=== PATIENT | female | born 1940 | race Caucasian/White ===

== ENCOUNTER 2019-07-26 17:11 | Inpatient (IN) | payer MEDICARE ==
[~2019-07-26] VITALS: Ht 154.9 cm; Wt 70.8 kg
[2019-07-26 17:53] LABS: BASOPHILS ABSOLUTE AUTO 0.05 K/mm3 (0.00-0.23); BASOPHILS PERCENT AUTO 1 % (0-2); EOSINOPHILS ABSOLUTE AUTO 0.12 K/mm3 (0.00-0.68); EOSINOPHILS PERCENT AUTO 1 % (0-6); Hematocrit 37.3 % (33.0-51.0); Hemoglobin 11.8 g/dL (11.5-16.0); IMMATURE GRAN ABSOLUTE AUTO 0.04 K/mm3 (0.00-0.10); IMMATURE GRAN PERCENT AUTO 1 % (0-1); LYMPHOCYTES ABSOLUTE AUTO 1.66 K/mm3 (0.84-5.20); LYMPHOCYTES PERCENT AUTO 20 % (21-46); MONOCYTES ABSOLUTE AUTO 0.74 K/mm3 (0.16-1.47); MONOCYTES PERCENT AUTO 9 % (4-13); Mean Corpuscular HGB 27.4 pg (26.0-34.0); Mean Corpuscular HGB Conc 31.6 g/dL (31.5-36.5); Mean Corpuscular Volume 87 fL (80-100); Mean Platelet Volume 10.7 fL (9.1-12.4); NEUTROPHILS PERCENT AUTO 69 % (41-73); Platelet Count 231 K/mm3 (150-400); RDW Coefficient Variation 15.1 % (11.7-14.2); RDW Standard Deviation 47.8 fL (35.1-46.3); White Blood Cell Count 8.31 K/mm3 (4.00-11.30)
[2019-07-26 18:07] LABS: Alanine Aminotransfer (ALT/SGP 31 U/L (12-78); Albumin, Blood 3.4 g/dL (3.4-5.0); Albumin/Globulin Ratio 0.8 (0.8-1.8); Alk Phos 95 U/L (50-136); Anion Gap 5 mmol/L (6-16); Aspartate Aminotrans (AST/SGOT 17 U/L (12-37); Bilirubin, Total 0.4 mg/dL (0.1-1.0); Blood Urea Nitrogen 25 mg/dL (8-24); Bun/Creatinine Ratio 36.1 (12.0-20.0); CO2, Blood 27 mmol/L (21-32); Calcium, Blood 9.8 mg/dL (8.5-10.1); Chloride, Blood 102 mmol/L (98-108); Creatinine, Blood 0.69 mg/dL (0.40-1.00); Globulin, Blood 4.1 g/dL (2.2-4.0); Glomerular Filtration Rate >60 (60-); Glucose, Blood 266 mg/dL (70-99); Potassium, Blood 4.7 mmol/L (3.5-5.5); Sodium, Blood 134 mmol/L (136-145); Total Protein, Blood 7.5 g/dL (6.4-8.2); Troponin I 0.021 ng/mL (0.000-0.040)
[2019-07-26] MEDS ORDERED: LISI20 PO (19:17)
[2019-07-26] MEDS ORDERED: METF500 PO (19:18)
[2019-07-26] MEDS ORDERED: MONT10T PO (19:18)
[2019-07-26] MEDS ORDERED: Fish Oil Conc1000 MG PO (19:18)
[2019-07-26] MEDS ORDERED: ZOCOR20 MG PO (19:19)
[2019-07-26] MEDS ORDERED: SOLI5 PO (19:19)
[2019-07-26] MEDS ORDERED: ALBU90OI INH (19:20)
[2019-07-26] MEDS ORDERED: Vitamin D2000 UNIT PO (19:20)
[2019-07-26] MEDS ORDERED: BD ULTRA-FINE1 EAC1 MC (19:21)
[2019-07-26] MEDS ORDERED: CARV6.25 PO (19:21)
[2019-07-26] MEDS ORDERED: Cinnamon500 MG (19:22)
[2019-07-26] MEDS ORDERED: DICL75ER PO (19:22)
[2019-07-26] MEDS ORDERED: DULO60 PO (19:22)
[2019-07-26] MEDS ORDERED: INSDET100 SC (19:23)
[2019-07-26] MEDS ORDERED: GLIM4 PO (19:23)
[2019-07-26] MEDS ORDERED: Aspirin EC81 MG PO (21:05)
[2019-07-26] MEDS ORDERED: MIRALAX17 G1 PO (21:05)
[2019-07-26] MEDS ORDERED: ACET500 PO (21:06)
[2019-07-26 21:59] LABS: Adenovirus Not Detected (NOT DETECT); Bordetella pertussis Not Detected (NOT DETECT); Chlamydophila pneumoniae Not Detected (NOT DETECT); Coronavirus 229E Not Detected (NOT DETECT); Coronavirus HKU1 Not Detected (NOT DETECT); Coronavirus NL63 Not Detected (NOT DETECT); Coronavirus OC43 Not Detected (NOT DETECT); Human Metapneumovirus Detected (NOT DETECT); Human Rhinovirus/Enterovirus Not Detected (NOT DETECT); Influenza A/2009-H1 Not Detected (NOT DETECT); Influenza A/H1 Not Detected (NOT DETECT); Influenza A/H3 Not Detected (NOT DETECT); Influenza B Not Detected (NOT DETECT); Mycoplasma pneumoniae Not Detected (NOT DETECT); Parainfluenza Virus 1 Not Detected (NOT DETECT); Parainfluenza Virus 2 Not Detected (NOT DETECT); Parainfluenza Virus 3 Not Detected (NOT DETECT); Parainfluenza Virus 4 Not Detected (NOT DETECT); Respiratory Syncytial Virus Not Detected (NOT DETECT)
--- NOTE | 2019-07-27 02:46 | NUR ---
RECIEVIED FROM ER TO REVERSE FLOW ROON, TRANSFER FROM BED TO [facility] WITH MIN ASSIST. DROPLET AND AIRBORNE PRECATIONS INITIATED. SEE [facility] FOR FULL ADMISSION ASSESSMENT.
[2019-07-27 04:33] LABS: Hematocrit 34.6 % (33.0-51.0); Mean Corpuscular HGB 27.6 pg (26.0-34.0); Mean Corpuscular HGB Conc 31.8 g/dL (31.5-36.5); Mean Corpuscular Volume 87 fL (80-100); Mean Platelet Volume 10.8 fL (9.1-12.4); Platelet Count 196 K/mm3 (150-400); RDW Coefficient Variation 15.4 % (11.7-14.2); RDW Standard Deviation 48.9 fL (35.1-46.3); Red Blood Cell Count 3.99 M/mm3 (3.80-5.20); White Blood Cell Count 6.81 K/mm3 (4.00-11.30)
[2019-07-27 04:51] LABS: Albumin, Blood 3.3 g/dL (3.4-5.0); Albumin/Globulin Ratio 0.8 (0.8-1.8); Bilirubin, Total 0.5 mg/dL (0.1-1.0); Bun/Creatinine Ratio 33.8 (12.0-20.0); Calcium, Blood 9.4 mg/dL (8.5-10.1); Creatinine, Blood 0.98 mg/dL (0.40-1.00); Globulin, Blood 4.1 g/dL (2.2-4.0); Potassium, Blood 5.1 mmol/L (3.5-5.5); Total Protein, Blood 7.4 g/dL (6.4-8.2)
[2019-07-27 08:37] LABS: Test Name COVID-19
--- NOTE | 2019-07-27 12:05 | NUR ---
TALKED TO DR. GOLDBERG REGARDING PT'S HIGH BLOOD SUGAR OF 499 ADVISED TO ADMINISTER INSULIN PER SLIDING SCALE, PROVIDER TO ADJUST INSULIN DOSE. PT ASYMPTOMATIC, CURRENTLY IN BED WITH CALL LIGHTS IN REACH.
--- NOTE | 2019-07-27 18:34 | NUR ---
PT ALERT AND ORIENTED, PT STAYED IN THE ROOM MOST OF THE SHIFT, COOPERATIVE WITH CARES AND COMPLAINT WITH MEDICATION. HRR NSR ON 90'S DENIES CHEST PAIN, LUNGS WITH EXPIRATORY WHEEZES SATS ABOVE 90% ON 2L OF O2, PT HAS BEEN AMBULATING WITH ASSISTS FOR TOILETING. AWAITING FOR PENDING RESULT FOR JJ VIRUS, PT STILL ON AIRBRONE PRECAUTIONS. CBG'S HAS BEEN HIGH FOR THE SHIFT [phone] DR GOLDBERG MADE AWARE ADVISED TO GIVE HUMALOG INSULIN PER SLIDING SCALE, NO ADJUSTMENTS MADE YET, REG DIET SWITCHED TO ADA DIET. PT CURRENTLY IN BED RESTING CALL LIGHTS WITHIN REACH WILL MONITOR.
--- NOTE | 2019-07-28 05:35 | NUR ---
END OF SHIFT SUMMARY NO ACUTE CHANGES THIS SHIFT. VSS. STIL AWAITING CORONVIRUS RESULTS. STILL IN AIRBORNE PRECAUTIONS. LUNGS REMAIN WHEEZY THOUGHOUT. PT REMIANS ON 3LNC. HAS BEEN UOP TO BATHROOM MULTIOPLE TIMES THIS SHIFT, MAINTAINS SATS >92%. FAMILY HAS BEEN AT BEDASIDE AT THE BEGINNING OF THE SHIFT. PT HAS SLEPTY FOR THE MAJORITY OF THE NIGHT5, HAS TOLERATED CPAP OF AND ON. PT VERY PLEASANT. AFEBRILE. WILL CONTINU TO MONITOR UNTIL SHIFT CHANGE.
[2019-07-28 06:06] LABS: BASOPHILS ABSOLUTE AUTO 0.02 K/mm3 (0.00-0.23); BASOPHILS PERCENT AUTO 0 % (0-2); EOSINOPHILS PERCENT AUTO 0 % (0-6); Hematocrit 32.4 % (33.0-51.0); Hemoglobin 10.4 g/dL (11.5-16.0); IMMATURE GRAN ABSOLUTE AUTO 0.07 K/mm3 (0.00-0.10); IMMATURE GRAN PERCENT AUTO 1 % (0-1); LYMPHOCYTES PERCENT AUTO 9 % (21-46); MONOCYTES ABSOLUTE AUTO 0.65 K/mm3 (0.16-1.47); MONOCYTES PERCENT AUTO 4 % (4-13); Mean Corpuscular HGB 27.7 pg (26.0-34.0); Mean Corpuscular HGB Conc 32.1 g/dL (31.5-36.5); Mean Corpuscular Volume 86 fL (80-100); Mean Platelet Volume 11.1 fL (9.1-12.4); NEUTROPHILS ABSOLUTE AUTO 12.69 K/mm3 (1.96-9.15); NEUTROPHILS PERCENT AUTO 86 % (41-73); Platelet Count 209 K/mm3 (150-400); RDW Coefficient Variation 15.2 % (11.7-14.2); RDW Standard Deviation 47.6 fL (35.1-46.3); Red Blood Cell Count 3.75 M/mm3 (3.80-5.20); White Blood Cell Count 14.73 K/mm3 (4.00-11.30)
[2019-07-28 06:17] LABS: Alanine Aminotransfer (ALT/SGP 26 U/L (12-78); Albumin, Blood 3.2 g/dL (3.4-5.0); Albumin/Globulin Ratio 0.8 (0.8-1.8); Alk Phos 79 U/L (50-136); Anion Gap 5 mmol/L (6-16); Aspartate Aminotrans (AST/SGOT 15 U/L (12-37); Bilirubin, Total 0.3 mg/dL (0.1-1.0); Blood Urea Nitrogen 36 mg/dL (8-24); Bun/Creatinine Ratio 41.8 (12.0-20.0); CO2, Blood 29 mmol/L (21-32); Calcium, Blood 9.4 mg/dL (8.5-10.1); Chloride, Blood 103 mmol/L (98-108); Creatinine, Blood 0.86 mg/dL (0.40-1.00); Globulin, Blood 3.8 g/dL (2.2-4.0); Glomerular Filtration Rate >60 (60-); Glucose, Blood 367 mg/dL (70-99); Magnesium, Blood 2.1 mg/dL (1.6-2.4); Potassium, Blood 5.3 mmol/L (3.5-5.5); Sodium, Blood 137 mmol/L (136-145)
--- NOTE | 2019-07-28 15:47 | NUR ---
SHIFT NOTE PT REPORTS THAT SHE IS "FEELING MUCH BETTER TODAY" STS GREAT IMPROVEMENT OF BREATHING. PT DOES BECOME WHEEZY WITH EXERTION, BUT DOES NOT DESATURATE. PT WITH FINE EXPIRATORY WHEEZES NOTED TO RUL, BUT OTHERWISE DIMENISHED T/O. VSS. PT HAS NEEDED INSULIN COVERAGE T/O THE DAY, DR GOLDBERG WAS NOTIFIED ON ONE CHEMBG THAT WAS 406. PT WILL REMAIN PCU STATUS TODAY, WITH LIKELY TRANSFER TO MEDCIAL FLOOR TOMORROW PER DR GOLDBERG
[2019-07-29 04:10] LABS: Hematocrit 32.7 % (33.0-51.0); Hemoglobin 10.3 g/dL (11.5-16.0); Mean Corpuscular HGB 27.4 pg (26.0-34.0); Mean Corpuscular HGB Conc 31.5 g/dL (31.5-36.5); Mean Corpuscular Volume 87 fL (80-100); Mean Platelet Volume 10.5 fL (9.1-12.4); Platelet Count 210 K/mm3 (150-400); RDW Coefficient Variation 15.1 % (11.7-14.2); Red Blood Cell Count 3.76 M/mm3 (3.80-5.20); White Blood Cell Count 15.05 K/mm3 (4.00-11.30)
--- NOTE | 2019-07-29 04:17 | NUR ---
SHIFT SUMMARY HAS RESTED WELL THIS SHIFT. LYING IN SEMI FOWLERS WITH EYES CLOSED. RESPIRATIONS EVEN AND UNLABOREDON O2 AT 3L/NC. HAS EXP WHEEZES AUDIBLE WITHOUT STEPHESCOPE AND TACHYPNEA NOTED WITH EXERTION. ABLE TO CLEAR WITH COUGH. DENIES PAIN, DISCOMFORT, OR FURTHER NEEDS AT THIS TIME. SAFETY MEASURES IN PLACE. WILL GIVE HAND OFF TO ONCOMING SHIFT USING SBAR.
[2019-07-29 04:29] LABS: Anion Gap 6 mmol/L (6-16); Blood Urea Nitrogen 37 mg/dL (8-24); Bun/Creatinine Ratio 43.7 (12.0-20.0); CO2, Blood 29 mmol/L (21-32); Calcium, Blood 9.3 mg/dL (8.5-10.1); Chloride, Blood 102 mmol/L (98-108); Creatinine, Blood 0.85 mg/dL (0.40-1.00); Glomerular Filtration Rate >60 (60-); Glucose, Blood 309 mg/dL (70-99); Potassium, Blood 5.3 mmol/L (3.5-5.5); Sodium, Blood 137 mmol/L (136-145)
[2019-07-29 04:42] LABS: Percent Saturation 11.7 % (15.0-50.0)
--- NOTE | 2019-07-29 16:07 | NUR ---
PCU DAYSHIFT SUMMARY PATIENT REMAINS ALERT AND ORIENTED X4 T/O SHIFT. PATIENT DENIES ANY PAIN OR SOB AT REST. PATIENT REMAINS ON 2.5 LPM NC T/O SHIFT WITH CONTINUOUS BIOX IN PLACE - SPO2 >92%. PATIENT NOW MED NO TELE STATUS. NO ACUTE CHANGES OR EVENTS NOTED T/O SHIFT. MD GOLDBERG CHANGES PATIENTS INSULIN MEDICATIONS TO HELP HER HYPERGLYCEMIA. PATIENT HAS CALL LIGHT W/I REACH. AMBULATES WITH STEADY GAIT TO BATHROOM AND CANE FROM HOME. WILL CONTINUE TO MONITOR AND GIVE REPORT TO NOC SHIFT RN.
--- NOTE | 2019-07-30 05:14 | NUR ---
SUMMARY NO ACUTE CHANGES OTED THROUGH THE NIGHT, PT REMAINS A&O X4, INDEPENDENT IN THE ROOM, SHE IS CURRENTLY ON 2 L O2 VIA NC, O2 SATS >94%, VSS. PT'S DAUGHTERS HAVE BEEN IN TO VISIT EARLIER IN THE EVENING. THE PT IS BEING TRANSFERED TO ROOM 358 ON MEDICAL FLOOR. REPORT HAS BEEN CALLED. PT IS AWAKE, BELONGINGS SENT.
--- NOTE | 2019-07-30 05:52 | NUR ---
PCU 08 TRANSFER. REPORT TAKEN FROM TRI MARTINEZ. ARRIVED VIA GURNEY AND BED EXCHANGE. AXOX 4 AND SBA TO BR. ON 2L O2 NC. DENIES PAIN, SOB, AND N/V. DROPLET PRECAUTIONS. CALL LIGHT IN REACH. BED IN LOWEST POSITION. WILL CONTINUE TO MONITOR UNTIL DAY SHIFT NURSE ASSUMES CARE.
--- NOTE | 2019-07-30 08:07 | NUR ---
BLOOD GLUCOSE [address] CARPENTER NOTIFIED. WILL GIVE SLIDING SCALE HUMALOG AND MONITOR.
--- NOTE | 2019-07-30 13:10 | NUR ---
PT BLOOD GLUCOSE WAS 453 @1155. DR CARPENTER NOTIFIED INSULIN ADJUSTED.
--- NOTE | 2019-07-30 17:30 | NUR ---
SHIFT SUMMARY- PT IS A/O, PLESANT AND COOPERATIVE. SHE IS WORKING WITH RT. WORKING ON TITRATING HER OFF OXYGEN. SHE WAS ABLT TO MAINTAIN SATURATION AT 1L O2 BUT HER SATURATIONS BEGAN TO DROP WHEN IT WAS REMOVED. WILL CONTINUE TO MONTIOR, POSSIBLE HOME O2 EVALUATION IF SHE IS UNABLE TO BE TITRATED OFF O2. SHE IS EATING AND DRINKING WELL. SHE STATES THAT SHE IS FEELING BETTER.
--- NOTE | 2019-07-30 23:46 | NUR ---
CALL TO ANSWERING SERVICE RE: CBG [phone]. SPOKE W/BREANNA BRAVO NP AT [phone]. PT HAS BEEN ADMINISTERED HS [facility] PER ORDER. CONT ON PREDNISONE. NO NEW ORDERS AT THIS TIME.
--- NOTE | 2019-07-31 06:28 | NUR ---
SHIFT SUMMARY: A/0X3. MAKES NEEDS KNOWN. 02 SATS 92-95% ON 1L VIA NC. EXERTIONAL SOB. OCC DRY COUGH. AUDIBLE EXP WHEEZE BEFORE RT TX. UP INDEPENDENTLY IN ROOM. NO ACUTE CHANGES OVERNIGHT. WILL CONT TO MONITOR.
[2019-07-31] MEDS ORDERED: ACET325 PO (12:34)
[2019-07-31] MEDS ORDERED: BASAGLAR K100 UNIT/1 SC (12:37)
[2019-07-31] MEDS ORDERED: Humalog100 UNIT/1 SC (12:39)
[2019-07-31] MEDS ORDERED: ROBITUSSIN COU237 M1 PO (12:46)
[2019-07-31] MEDS ORDERED: AZIT500 PO (13:27)
[2019-07-31] MEDS ORDERED: TROSPIUM CHLORI20 MG PO (13:27)
[2019-07-31] MEDS ORDERED: PRED10 PO (13:29)
[2019-07-31] MEDS ORDERED: Duoneb 2.5-0.5 M3 ML INH (13:58)
--- NOTE | 2019-07-31 16:49 | NUR ---
DISCHARGE NOTE PT DISCHARGED TO HOME WITH DAUGHTER. PT ALERT AND ORIENTED THROUGHOUT THIS SHIFT. PT INDEPENDENT IN THE ROOM THROUGHOUT THIS SHIFT. IV REMOVED PRIOR TO DISCHARGE. PT INSTRUCTIONS AND EDUCATION PROVIDED PRIOR TO DISCHARGE. PT STATES NO QUESTIONS AT THIS TIME. PT TO WHEELCHAIR INDEPENDENTLY. PT TO VEHICLE IN WHEELCHAIR WITH MACHINED PARTS METAL SPRAYER
== END 2019-07-31 16:40 | disposition home or self-care (01) | DRG 193 ==
LOC: ER 17:11 → PCU 17:12 → MEDS 07-30 05:41 → ENPENDDIS 07-31 10:37 → MEDS 07-31 16:40
PROVIDERS: Emergency Medicine; Internal Medicine; Physician Assistant; ADMIT Internal Medicine
DX: J18.9 Pneumonia, unspecified organism (principal); J96.01 Acute respiratory failure with hypoxia; J44.1 Chronic obstructive pulmonary disease with (acute) exacerbation; J44.0 Chronic obstructive pulmonary disease with (acute) lower respiratory infection; J45.901 Unspecified asthma with (acute) exacerbation; B97.81 Human metapneumovirus as the cause of diseases classified elsewhere; J20.9 Acute bronchitis, unspecified; F32.9 Major depressive disorder, single episode, unspecified; E11.9 Type 2 diabetes mellitus without complications; D50.9 Iron deficiency anemia, unspecified; I10 Essential (primary) hypertension; E78.5 Hyperlipidemia, unspecified; Z87.891 Personal history of nicotine dependence; Z79.4 Long term (current) use of insulin; Z79.82 Long term (current) use of aspirin; Z79.84 Long term (current) use of oral hypoglycemic drugs; Z79.899 Other long term (current) drug therapy; Z88.5 Allergy status to narcotic agent; Z88.0 Allergy status to penicillin; Z88.2 Allergy status to sulfonamides; Z88.8 Allergy status to other drugs, medicaments and biological substances; Z91.018 Allergy to other foods
CPT/HCPCS: 0099U; 36415; 71046; 71250; 80048; 80053; 82728; 82947; 83540; 83550; 83735; 83880; 84484; 85025; 85027; 93005; 93010; 94640; 94644; 94660; 94668; 94760; 94762; 96374; 99285-25; A9270-GY; J0456; J1650; J2930; J7050; J7512

== ENCOUNTER 2019-12-20 18:43 | Emergency (ER) | payer MEDICARE ==
[~2019-12-20] VITALS: Ht 154.9 cm; Wt 81.7 kg
[~2019-12-20 18:43] MED LIST: ACET325 PO; ACET500 PO; ALBU90OI INH; AZIT500 PO; Aspirin EC81 MG PO; BASAGLAR K100 UNIT/1 SC; BD ULTRA-FINE1 EAC1 MC; CARV6.25 PO; Cinnamon500 MG; DICL75ER PO; DULO60 PO; Duoneb 2.5-0.5 M3 ML INH; Fish Oil Conc1000 MG PO; GLIM4 PO; Humalog100 UNIT/1 SC; INSDET100 SC; LISI20 PO; METF500 PO; MIRALAX17 G1 PO; MONT10T PO; PRED10 PO; ROBITUSSIN COU237 M1 PO; SOLI5 PO; TROSPIUM CHLORI20 MG PO; Vitamin D2000 UNIT PO; ZOCOR20 MG PO
[2019-12-20 19:23] LABS: BASOPHILS ABSOLUTE AUTO 0.06 K/mm3 (0.00-0.23); BASOPHILS PERCENT AUTO 1 % (0-2); EOSINOPHILS ABSOLUTE AUTO 0.24 K/mm3 (0.00-0.68); EOSINOPHILS PERCENT AUTO 2 % (0-6); Hematocrit 34.8 % (33.0-51.0); IMMATURE GRAN ABSOLUTE AUTO 0.12 K/mm3 (0.00-0.10); IMMATURE GRAN PERCENT AUTO 1 % (0-1); LYMPHOCYTES ABSOLUTE AUTO 3.09 K/mm3 (0.84-5.20); LYMPHOCYTES PERCENT AUTO 31 % (21-46); MONOCYTES ABSOLUTE AUTO 0.62 K/mm3 (0.16-1.47); MONOCYTES PERCENT AUTO 6 % (4-13); Mean Corpuscular HGB 26.8 pg (26.0-34.0); Mean Corpuscular HGB Conc 31.6 g/dL (31.5-36.5); Mean Corpuscular Volume 85 fL (80-100); Mean Platelet Volume 10.6 fL (9.1-12.4); NEUTROPHILS PERCENT AUTO 59 % (41-73); Platelet Count 283 K/mm3 (150-400); RDW Coefficient Variation 14.8 % (11.7-14.2); RDW Standard Deviation 45.3 fL (35.1-46.3); White Blood Cell Count 9.93 K/mm3 (4.00-11.30)
[2019-12-20 19:44] LABS: Alanine Aminotransfer (ALT/SGP 19 U/L (12-78); Albumin, Blood 3.1 g/dL (3.4-5.0); Albumin/Globulin Ratio 0.8 (0.8-1.8); Alk Phos 88 U/L (50-136); Anion Gap 6 mmol/L (6-16); Aspartate Aminotrans (AST/SGOT 17 U/L (12-37); Bilirubin, Total 0.3 mg/dL (0.1-1.0); Blood Urea Nitrogen 19 mg/dL (8-24); Bun/Creatinine Ratio 26.8 (12.0-20.0); CO2, Blood 26 mmol/L (21-32); Calcium, Blood 10.1 mg/dL (8.5-10.1); Chloride, Blood 103 mmol/L (98-108); Creatinine, Blood 0.71 mg/dL (0.40-1.00); Glomerular Filtration Rate >60 (60-); Glucose, Blood 315 mg/dL (70-99); Potassium, Blood 4.8 mmol/L (3.5-5.5); Sodium, Blood 135 mmol/L (136-145); Total Protein, Blood 7.1 g/dL (6.4-8.2)
[2019-12-20 19:51] LABS: Source, Urine Clean Catch
[2019-12-20 20:03] LABS: Bilirubin, Urine Neg (Neg); Blood, Urine Neg (Neg); Glucose Qualitative, Urine 4+ (Neg); Ketones, Urine Neg (Neg); Leukocyte Esterase, Urine 3+ (Neg); Nitrite, Urine Pos (Neg); Protein, Urine 2+ (Neg); Specific Gravity, Urine 1.015 (1.003-1.022); Urobilinogen, Urine NORM (Normal)
[2019-12-20 20:08] LABS: Appearance, Urine Hazy (Clear); Color, Urine Yellow (P-Yellow)
[2019-12-20 20:10] LABS: Bacteria Mod /hpf; Red Blood Cells, Urine Not Seen /hpf (0-2); Squamous Epithelial Cells Rare /hpf (Few)
[2019-12-20] MEDS ORDERED: LEVEMIR FL100 UNIT/2 (20:35)
[2019-12-20] MEDS ORDERED: CEPH500 PO (22:36)
[2019-12-20] MEDS ORDERED: HYOS.125 PO (22:36)
== END 2019-12-20 23:02 | disposition home or self-care (01) ==
LOC: ER 18:43
PROVIDERS: Physician Assistant
DX: N39.0 Urinary tract infection, site not specified (principal); Z88.0 Allergy status to penicillin; Z91.018 Allergy to other foods; Z88.5 Allergy status to narcotic agent; Z88.8 Allergy status to other drugs, medicaments and biological substances; Z79.899 Other long term (current) drug therapy; Z79.84 Long term (current) use of oral hypoglycemic drugs; I10 Essential (primary) hypertension; J45.909 Unspecified asthma, uncomplicated; E11.9 Type 2 diabetes mellitus without complications; E78.5 Hyperlipidemia, unspecified; Z87.891 Personal history of nicotine dependence
CPT/HCPCS: 36415; 80053; 81001; 83690; 85025; 87086; 96360; 96361; 99284-25; A9270-GY; J7030

== ENCOUNTER → 2022-11-24 | Outpatient (CLI) | payer MEDICARE ==
[~2022-11-24] MED LIST changes: +CEPH500 PO; +HYOS.125 PO; +LEVEMIR FL100 UNIT/2
== END | disposition home or self-care (01) ==
LOC: LAB 17:52 → LAB SHORT 17:52
DX: E11.42 Type 2 diabetes mellitus with diabetic polyneuropathy (principal)
CPT/HCPCS: 82043